=== PATIENT | female | born 1975 | race African-American/Black ===

== ENCOUNTER 2024-04-11 10:01 | Outpatient (CLI) | payer OTHER, SELFPAY ==
--- NOTE | ~2024-04-11 | MM_ITS ---
EXAMINATION: MM screening crystal BI w frank HISTORY: Screening TECHNIQUE: Craniocaudal and mediolateral oblique 3-D tomosynthesis images were obtained and synthetic 2-D images were generated. CAD analysis was submitted and interpreted. COMPARISON: No prior mammogram is available for comparison at this institution. BREAST PARENCHYMAL COMPOSITION: There are scattered areas of fibroglandular density. FINDINGS: There is no evidence of suspicious mass, calcification, or architectural distortion to sugg est malignancy in either breast. There has been no suspicious interval change. IMPRESSION: 1. No mammographic evidence of malignancy. 2. Recommend routine screening mammography in one year. BI-RADS Category 1: Negative Reviewed, dictated and finalized at location B.
== END 2024-04-11 10:02 ==
LOC: MICIMG 10:02
PROVIDERS: PCP Nurse Practitioner Obstetrics & Gynecology; Visit Provider Nurse Practitioner Obstetrics & Gynecology
DX: Z12.31 Encounter for screening mammogram for malignant neoplasm of breast (principal)
CPT/HCPCS: 77063; 77067

== ENCOUNTER 2025-06-01 07:50 | Outpatient (CLI) | payer OTHER, SELFPAY ==
--- NOTE | ~2025-06-01 | US_ITS ---
US right upper quadrant INDICATION: Elevated liver enzymes PROCEDURE: Realtime right upper abdominal ultrasound. COMPARISON: No prior studies for comparison. FINDINGS: The pancreas is normal without focal mass or pancreatic ductal dilation. Liver echotexture is diffusely increased consistent with fatty infiltration. There is normal directional flow in the portal vein. There are gallstones. Common bile duct measures 4 mm. No sonographic Keith's sign. IMPRESSION: 1: Cholelithiasis. 2: Fatty infiltration of the liver. Reviewed, dictated and finalized at location A.
--- NOTE | ~2025-06-01 | CT_ITS ---
EXAMINATION: CT brain wo con DATE: 06/01/2025 08:33 INDICATION: New onset of headache TECHNIQUE: Computed tomography (CT) of the head was performed without intravenous contrast. The dose- length product was 599.57 mGy-cm. Automated exposure control and iterative reconstruction technique were employed. COMPARISON: None FINDINGS: Normal brain parenchymal volume for age. No acute infarction, hemorrhage, mass or mass effe ct. No ventriculomegaly or midline shift. Basilar cisterns are patent. No acute intracranial hemorrha ge, infarction, mass or mass effect. Paranasal sinuses and mastoids are pneumatized. No depressed sku ll fractures. IMPRESSION: 1. No acute intracranial abnormality. Reviewed, dictated and finalized at location A.
== END 2025-06-01 07:51 | disposition home or self-care (01) ==
PROVIDERS: PCP Student in an Organized Health Care Education/Training Program; Visit Provider Student in an Organized Health Care Education/Training Program
DX: R51.9 Headache, unspecified (principal); K80.20 Calculus of gallbladder without cholecystitis without obstruction; K76.0 Fatty (change of) liver, not elsewhere classified
CPT/HCPCS: 70450; 76705

== ENCOUNTER 2025-09-18 08:14 | Outpatient (CLI) | payer OTHER, SELFPAY ==
--- NOTE | ~2025-09-18 | MM_ITS ---
EXAMINATION: MM screening crystal BI w frank HISTORY: Screening TECHNIQUE: Craniocaudal and mediolateral oblique 3-D tomosynthesis images were obtained and synthetic 2-D images were generated. CAD analysis was submitted and interpreted. COMPARISON: 04/11/2024 BREAST PARENCHYMAL COMPOSITION: There are scattered areas of fibroglandular density. FINDINGS: There is no evidence of suspicious mass, calcification, or architectural distortion to suggest malignancy in either breast. IMPRESSION: 1. No mammographic evidence of malignancy. 2. Recommend routine screening mammography in one year. BI-RADS Category 1: Negative Reviewed, dictated and finalized at location B. 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
== END 2025-09-18 08:15 | disposition home or self-care (01) ==
PROVIDERS: PCP Student in an Organized Health Care Education/Training Program; Visit Provider Student in an Organized Health Care Education/Training Program
DX: Z12.31 Encounter for screening mammogram for malignant neoplasm of breast (principal)
CPT/HCPCS: 77063; 77067

== ENCOUNTER 2025-11-10 08:00 | Outpatient (CLI) | payer OTHER, SELFPAY ==
--- NOTE | ~2025-11-10 | US_ITS ---
ULTRASOUND ABDOMEN LIMITED (RIGHT UPPER QUADRANT) Clinical History: Elevated liver enzymes Comparison: Right upper quadrant ultrasound 06/01/2025 Technique: Right upper quadrant sonography Findings: Liver: Normal size. Echogenic. No intrahepatic biliary ductal dilatation. Normal hepatopedal flow main portal vein. Common Duct: Normal caliber. 5 mm. Gallbladder: Stones. No wall thickening. No pericholecystic fluid. Negative sonographic Keith's sign per technologist report. Pancreas: Unremarkable. Right kidney: Unremarkable. Retrohepatic IVC: Unremarkable. IMPRESSION: 1. No acute findings or significant change from prior. 2. Gallstones. No evidence of cholecystitis. 3. Hepatic steatosis and/or hepatocellular disease. Reviewed, dictated and finalized at location R. 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
== END 2025-11-10 08:01 | disposition home or self-care (01) ==
LOC: MICIMG 08:01
PROVIDERS: PCP Student in an Organized Health Care Education/Training Program; Visit Provider Student in an Organized Health Care Education/Training Program
DX: K80.20 Calculus of gallbladder without cholecystitis without obstruction (principal); K76.0 Fatty (change of) liver, not elsewhere classified; K76.89 Other specified diseases of liver; R79.89 Other specified abnormal findings of blood chemistry
CPT/HCPCS: 76705